=== PATIENT | male | born 1970 | race American Indian/Alaskan Native ===

== ENCOUNTER 2019-06-06 10:01 | Day surgery (SDC) | payer OTHER ==
[~2019-06-06 10:01] MED LIST: LIDOCAINE MPF (2%) 20 MG/1 ML VIAL 5 ML ONE; SODIUM CHLORIDE 0.9% 1000 ML 1,000 ML IV SCH
[2019-06-06] MEDS ORDERED: WATER FOR IRRIG STERILE 250 ML BOTTLE IR ONE (10:47)
--- NOTE | 2019-06-06 10:54 | Anesthesia Day of Surgery ---
Anesthesia Day of Surgery - Day of Surgery Patient Examined: Yes Patient H&P Reviewed: Yes Patient is NPO: Yes Beta Blockers: No
--- NOTE | 2019-06-06 10:58 | Anesthesia Consultation ---
Anesthesia Consult and Med Hx Date of service: 06/06/19 - Airway Anesthetic Teeth Evaluation: Good ROM Head & Neck: Adequate Mental/Hyoid Distance: Adequate Mallampati Class: Class III Intubation Access Assessment: Possibly Difficult - Pre-Operative Health Status ASA Pre-Surgery Classification: ASA2 Proposed Anesthetic Plan: MAC - Pulmonary Hx Smoking: Yes (03/30 ppd) Hx Asthma: No Hx Respiratory Symptoms: No SOB: No COPD: No Home Oxygen Therapy: No Hx Pneumonia: No Hx Sleep Apnea: Yes - Cardiovascular System Hx Hypertension: No Hx Coronary Artery Disease: No Hx Heart Attack/AMI: No Hx Angina: No Hx Percutaneous Transluminal Coronary Angioplasty (PTCA): No Hx Cardia Arrhythmia: No Hx Pacemaker: No Hx Internal Defibrillator: No Hx Valvular Heart Disease: No Hx Heart Murmur: No Hx Peripheral Vascular Disease: No - Central Nervous System Hx Neuromuscular Disorder: No Hx Seizures: No CVA: No Hx Back Pain: Yes Hx Psychiatric Problems: Yes (PTSD/Anexity/Depression) - Gastrointestinal Hx Ulcer: No Hx Gastroesophageal Reflux Disease: No - Endocrine Hx Renal Disease: No Hx End Stage Renal Disease: No Hx Cirrhosis: No Hx Liver Disease: No Hx Insulin Dependent Diabetes: No Hx Non-Insulin Dependent Diabetes: No Hx Thyroid Disease: No Hx Hypothyroidism: No Hx Hyperthyroidism: No - Hematic Hx Anemia: No Hx Sickle Cell Disease: No - Other Systems Hx Alcohol Use: Yes (ETOH Abuse) Hx Substance Use: No Hx Cancer: No Hx Obesity: No
[2019-06-06] MEDS ORDERED: propofoL 200 MG/20 ML VIAL IV ONE ×5 (11:03→11:47)
[2019-06-06] MEDS ORDERED: EPINEPHrine 1:10,000 1 MG/10 ML SYRINGE ONE (11:19)
--- NOTE | 2019-06-06 12:10 | Procedure Note ---
Date of procedure: 06/06/19 Pre-op diagnosis: Colon Polyp Screening/F/H/O Cancer Post-op diagnosis: other (Multiple, Large Colon Polyps (Sigmoid and [id number] by Snare Polypectomy and retrieved with a Marino Net and 4 cc of epinephrine injected at the two separate sites (total). Additonal smaller polyps also removed.) Procedure: Colonoscopy and snare Polyprectomy and cold Biopsy and use of Marino Net to retrieve the large polyps. Anesthesia: MAC Surgeon: TIA HALEY Estimated blood loss: minimal Pathology: list Specimen disposition: to lab Condition: stable Disposition: same day (Avoid aspirin and NSAID for 5 days; otherwise resume home medication. Follow up in 1 to 2 weeks ([phone]).)
[2019-06-06 12:35] VITALS: BP 118/73
--- NOTE | 2019-06-06 12:56 | Operative Report ---
PROCEDURE: Colonoscopy with snare polypectomy and cold biopsy as well as application and injection of 4 mL of epinephrine and use of a Marino Net. INDICATIONS: This is a 49-year-old -[place] gentleman with a strong family history of cancer. The patient's father had lung cancer. Brother possibly had thyroid cancer. He has a history of smoking, had been a heavy drinker until recently and is on a [facility] to try and abstain from alcohol use. Colonoscopy was done as part of colon polyp screening. DESCRIPTION OF PROCEDURE: Procedure was done after getting informed consent with MAC anesthesia. Initial rectal exam was unremarkable. Instrument was passed through the rectum onto the cecum, which was identified with ileocecal valve and the appendiceal orifice. Visualization was fair. Cecum, ascending colon, transverse colon and descending colon showed normal mucosa. In the sigmoid, there was a large 12-15 mm polyp on a stalk that was removed by snare excision and had to be retrieved with a Marino Net. A 3 mL of epinephrine injection was injected around the site to prevent further bleeding from the polypectomy site. In this distal sigmoid near the rectosigmoid area, there was another 12 mm polyp that was injected with 1 mL of epinephrine prior to snare polypectomy and the polyp was removed and retrieved with a Marino Net. There was a smaller polyp adjacent to it that was also removed by cold snare polypectomy. In addition, there was a polyp in the ascending colon, probably about 9 mm in diameter that was also removed by cold snare polypectomy and retrieved. There was no diverticular disease and the rectum appeared normal on the retroverted view. There was mild bleeding from the polypectomy site, which was stopped by the injection of epinephrine and no other complications noted. ASSESSMENT: Colon polyp screening, family history of cancer, multiple large polyps as well as smaller polyps that were removed by snare polypectomy as well as cold biopsy. The two largest polyps were in the sigmoid and in the rectosigmoid area. PLAN: Plan is to have the patient avoid aspirin and aspirin-related products for the next few days. Follow up in the office in 1-2 weeks' time. Because of the size of the polyps, the patient will be asked to have a repeat colonoscopy done in a year's time. JOB# [id number] ANDREW/NYASIA
== END 2019-06-06 10:02 | disposition home or self-care (01) ==
LOC: GIO 10:01
DX: Z12.11 Encounter for screening for malignant neoplasm of colon (principal); D12.2 Benign neoplasm of ascending colon; D12.5 Benign neoplasm of sigmoid colon; D12.7 Benign neoplasm of rectosigmoid junction; F17.210 Nicotine dependence, cigarettes, uncomplicated; G47.30 Sleep apnea, unspecified; F32.9 Major depressive disorder, single episode, unspecified; F41.9 Anxiety disorder, unspecified; Z80.0 Family history of malignant neoplasm of digestive organs; Z80.1 Family history of malignant neoplasm of trachea, bronchus and lung; Z80.8 Family history of malignant neoplasm of other organs or systems; Z72.89 Other problems related to lifestyle; Z79.899 Other long term (current) drug therapy; Z88.8 Allergy status to other drugs, medicaments and biological substances
CPT/HCPCS: 45381; 45385; 88305; J0171; J2704; J7030